=== PATIENT | male | born 1970 | race Caucasian/White ===

== ENCOUNTER 2024-06-18 12:14 | Observation (INO) | payer OTHER ==
[2024-06-18] MEDS ORDERED: NA CHLORIDE 0.9% 1,000 ML ONE ×2 (12:45→15:19)
[2024-06-18] MEDS ORDERED: MORPHINE 4 MG/ML SYR ONE ×2 (12:45→13:44)
[2024-06-18] MEDS ORDERED: ONDANSETRON 4 MG/2 ML VIAL ONE ×2 (12:45→18:24)
[2024-06-18 13:16] LABS: Absolute Basophils 0.1 K/uL (0-0.5); Absolute Eosinophils 0.1 K/uL (0-0.5); Absolute Lymphocytes (CBC) 2.8 K/uL (0.7-4.9); Absolute Monocytes 1.6 K/uL (0.1-1.3); Absolute Neutrophil 11.9 K/uL (1.8-8.0); Basophils % 0.5 % (0-1.3); Eosinophils % 0.5 % (0-4.4); Hematocrit 49.3 % (39.6-49.0); Hemoglobin 15.8 g/dL (13.6-17.9); Lymphocytes % 16.8 % (15.3-44.8); MCH 28.1 pg (27.0-35.0); MCV 87.9 fL (80-100); MPV 8.6 fL (7.6-11.3); Monocytes % 9.5 % (3.3-12.3); Neutrophils % 72.7 % (41.7-73.7); Platelets 328 thou/uL (152-406); RBC Red Blood Cell Count 5.61 M/uL (4.33-5.43); Red Cell Distribution Width 14.3 % (12.1-15.2)
[2024-06-18 13:21] LABS: Specific Gravity 1.022 (1.005-1.030); Sqamous Epithelial None Seen /HPF (None Seen); Urine Bacteria None Seen /HPF (<20); Urine Bilirubin NEGATIVE (Negative); Urine Blood Trace (Negative); Urine Clarity Clear (Clear); Urine Color Light-Yellow (Yellow); Urine Culture Reflex Order NOT NEEDED; Urine Glucose 4+ (Over) (Negative); Urine Ketones NEGATIVE (Negative); Urine Microscopic Reflex YN ORDER UMIC; Urine Nitrite NEGATIVE (Negative); Urine Protein 2+ (Negative); Urine RBC <5 /HPF (None Seen); Urine Urobilinogen Normal (Normal); Urine WBC <5 /HPF (<5); Urine pH 6.5 (5.0-7.0)
--- NOTE | 2024-06-18 13:23 | RAD REPORT ---
EXAMINATION: CT ABDOMEN AND PELVIS WITH CONTRAST CLINICAL INDICATION: Abd pain;Abdominal distention TECHNIQUE: CT abdomen and pelvis was performed, after the administration of IV contrast, as per [facility] protocol. Axial, sagittal and coronal reconstructions were obtained. One or more of the following dose reduction techniques were used: Automated exposure control, adjustment of the mA and k V according to patient size, and iterative reconstruction. Unless otherwise specified, incidental findings do not require dedicated imaging follow-up. COMPARISON: No prior exam. FINDINGS: LOWER CHEST: Mild linear atelectasis left lung base. LIVER: Mild fatty liver is present. No focal lesion or biliary dilatation is seen. Cholecystectomy clips. SPLEEN: Normal size. No focal lesion. PANCREAS: Slight haziness in the fat surrounding the pancreatic uncinate process. ADRENALS: Normal; no mass. KIDNEYS: Punctate bilateral nephrolithiasis. GASTROINTESTINAL TRACT: No evidence of free air, significant intra-abdominal free fluid, bowel obstru ction or abscess. APPENDIX: Appendix not visualized, but no inflammatory changes in region of appendix. LYMPH NODES: No lymphadenopathy. MUSCULOSKELETAL: No acute or suspicious osseous abnormality. ADDITIONAL FINDINGS: Small fat-containing inguinal hernias. IMPRESSION: Subtle haziness in the fat adjacent to the pancreas could indicate pancreatitis. Suggest correlation with amylase/lipase levels. Fatty liver.
[2024-06-18 13:35] LABS: Albumin 3.7 g/dL (3.4-5.0); Albumin/Globulin Ratio 0.8 (1.1-1.8); Anion Gap 9.2 mEq/L (5.0-15.0); Bilirubin Total 0.7 mg/dL (0.2-1.0); Globulin 4.9 g/dL (2.3-3.5); Potassium 3.2 mEq/L (3.5-5.1); Protein, Total 8.6 g/dL (6.4-8.2)
[2024-06-18] MEDS ORDERED: CEFTRIAXONE 1000 MG/VIAL ONE (13:43)
--- NOTE | 2024-06-18 14:04 | EDPHYS ---
Physician Documentation [facility] Name: Bull Myrick Age: 54 yrs Sex: Male : 1970 Arrival Date: 06/18/2024 Time: 12:14 Bed 18 Private MD: ED Physician Reinaldo Lam HPI: 06/18 12:35 This 54 yrs old Male presents to ER via Unassigned with complaints of Low ec2 Back Pain, Abdominal Pain. 12:35 Patient arrives today for evaluation of abdominal pain and low back pain. Patient ec2 reports that he has been experiencing abdominal pain and low back pain this been progressive, described as cramping. Reports he is having some nausea. States he has not had a bowel movement in several days which is atypical for him. Previous history of cholecystectomy and appendectomy. No urinary complaints.. Historical: - Allergies: 12:36 No Known Allergies; kb3 - PMHx: 12:36 Diabetes mellitus; Hypertensive disorder; Gout; PTSD; kb3 - PSHx: 12:36 Cholecystectomy; Appendectomy; Knee SX; kb3 - Immunization history:: Adult Immunizations up to date, Client reports receiving the 2nd dose of the Covid vaccine, Last tetanus immunization: unknown. - Infectious Disease History:: Denies. - Social history:: Smoking status: Patient denies any tobacco usage or history of. ROS: 12:35 Constitutional: as per hpi ec2 Exam: 12:35 Constitutional: GEN: NAD Head: atraumatic Eyes: EOMI Ears: External ears are ec2 normal. CV: tachycardiaLUNGS: no respiratory distress ABD: Some abdominal distention noted, general TTP, worse on the right abdomen. SKIN: no evidence of rashes MSK: no evidence of trauma Vital Signs: 12:33 BP 165 / 102; Pulse 112; Resp 18; Temp 98.5; Pulse Ox 97% ; Weight 104.33 kg; Height 5 kb3 ft. 11 in. ; Pain 8/10; 14:29 BP 155 / 94; Pulse 90; Resp 15; Temp 98.4; Pulse Ox 98% ; Pain 8/10; ty 12:33 Body Mass Index 32.08 (104.33 kg, 180.34 cm) kb3 12:33 Pain Scale: Adult kb3 14:29 Pain Scale: Adult ty MDM: 12:32 Medical Screening Exam initiated ec2 12:35 Data reviewed: vital signs, nurses notes. ED course: Patient arrives today for ec2 abdominal pain and back pain. Examination remarkable for slightly tachycardic individual has abdominal TTP and distention. Will obtain lab work, CT imaging and treat patient's pain.. 13:30 ED course: CBC shows leukocytosis of 16.4. Urine is noninfectious appearing. CT abdomen ec2 pelvis shows possible pancreatitis.. 14:02 ED course: The patient multiple doses of morphine with some improvement in symptoms ec2 however reports that he is still having issues with pain. Will admit for pain control. Discussed with hospitalist, pending admission. GI can be consulted on a nonemergent basis.. 14:24 ED course: EKG independently reviewed and interpreted by me, shows normal sinus rhythm, ec2 rate of 90, no acute ST segment elevations, intervals are nonactionable.. 06/18 12:33 Order name: CBC with Diff; Complete Time: 13:28 ec2 06/18 12:33 Order name: CMP; Complete Time: 13:58 ec2 06/18 12:33 Order name: Lipase; Complete Time: 13:58 ec2 06/18 12:33 Order name: Urinalysis w/ reflexes; Complete Time: 13:28 ec2 06/18 13:30 Order name: Blood Culture Adult (2) ec2 06/18 13:30 Order name: Lactate w/ 2H reflex if indic. ec2 06/18 14:24 Order name: Glucose, Ancillary Testing EDMS 06/18 14:45 Order name: Basic Metabolic Panel EDMS 06/18 14:45 Order name: Basic Metabolic Panel EDMS 06/18 14:45 Order name: Basic Metabolic Panel EDMS 06/18 14:45 Order name: Basic Metabolic Panel EDMS 06/18 14:45 Order name: CBC with Automated Diff EDMS 06/18 14:45 Order name: CBC with Automated Diff EDMS 06/18 14:45 Order name: CBC with Automated Diff EDMS 06/18 14:45 Order name: CBC with Automated Diff EDMS 06/18 14:45 Order name: Lipid Profile EDMS 06/18 14:45 Order name: Lipid Profile EDMS 06/18 14:45 Order name: Magnesium EDMS 06/18 14:45 Order name: Magnesium EDMS 06/18 14:45 Order name: Magnesium EDMS 06/18 14:45 Order name: Magnesium EDMS 06/18 14:45 Order name: Phosphorus EDMS 06/18 14:45 Order name: Phosphorus EDMS 06/18 14:45 Order name: Phosphorus EDMS 06/18 14:45 Order name: Phosphorus EDMS 06/18 14:58 Order name: CREATININE WHOLE BLOOD EDMS 06/18 18:28 Order name: Glucose, Ancillary Testing EDMS 06/18 21:55 Order name: Glucose, Ancillary Testing EDMS 06/19 06:45 Order name: Lipase EDMS 06/19 08:26 Order name: Glucose, Ancillary Testing EDMS 06/18 12:33 Order name: CT Abd/Pelvis - IV Contrast Only; Complete Time: 13:28 ec2 06/18 13:30 Order name: EKG; Complete Time: 13:30 ec2 06/18 12:33 Order name: IV Saline Lock; Complete Time: 13:07 ec2 06/18 12:33 Order name: Labs collected and sent; Complete Time: 13:07 ec2 06/18 12:33 Order name: NPO; Complete Time: 13:07 ec2 06/18 13:30 Order name: Accucheck; Complete Time: 14:16 ec2 06/18 13:30 Order name: Cardiac monitoring; Complete Time: 13:34 ec2 06/18 13:30 Order name: EKG - Nurse/Tech; Complete Time: 14:16 ec2 06/18 13:30 Order name: IV Saline Lock - Large Bore; Complete Time: 13:34 ec2 06/18 13:30 Order name: O2 Per Protocol; Complete Time: 13:34 ec2 06/18 13:30 Order name: O2 Sat Monitoring; Complete Time: 13:34 ec2 06/18 13:30 Order name: Vital Signs; Complete Time: 13:34 ec2 Administered Medications: 13:07 Drug: Ondansetron IVP 4 mg IVP once; over 2 minutes Route: IVP; Site: left antecubital; kb3 13:56 Follow up: Response: Nausea is decreased kb3 13:07 Drug: morphine IVP or IV 4 mg IVP once over 4 mins Route: IVP; Infused Over: 4 mins; kb3 Site: left antecubital; 13:58 Follow up: Response: Pain is decreased kb3 13:07 Drug: NS 0.9% IV 1000 ml IV at 1 bolus Per protocol; to be given as a bolus over 60 kb3 minutes Route: IV; Rate: 1 bolus; Site: left antecubital; 13:55 Drug: morphine IVP or IV 4 mg IVP once over 4 mins Route: IVP; Infused Over: 4 mins; kb3 Site: left antecubital; 14:19 Follow up: Response: No adverse reaction; Pain is decreased kb3 14:18 Drug: Rocephin IV 1 grams IV at calculated rate once; Given slow IV push per pharmacy kb3 instructions Route: IV; Rate: calculated rate; Site: left antecubital; 14:20 Follow up: Response: No adverse reaction; IV Status: Completed infusion; IV Intake: [id number] Point of Care Testing: Blood Glucose: 14:20 Blood Glucose: 94 mg/dL; kb3 Ranges: Critical Glucose Levels:Adult <50 mg/dl or >400 mg/dl <40 mg/dl or >180 mg/dl Disposition Summary: 06/18/24 14:03 Hospitalization Ordered Notes: Hospitalization Status: Inpatient Admission ec2 Provider: Edwin Payne ec2 Condition: Stable ec2 Problem: new ec2 Symptoms: have improved ec2 Bed/Room Type: Standard ec2 Location: Telemetry/MedSurg (Inpatient)(06/19/24 08:17) kb3 Room Assignment: 413(06/19/24 08:17) kb3 Diagnosis - Acute pancreatitis without necrosis or infection, unspecified ec2 Forms: - Medication Reconciliation Form ec2 - SBAR form ec2 - Leadership Thank You Letter ec2 Signatures: Dispatcher [employer] EDMS Kat Mueller James RN RN jb4 Bailey Kemp RN RN kb3 Sonal Alvarado rv1 Reinaldo Lam MD MD ec2 Corrections: (The following items were deleted from the chart) 12:37 12:35 Constitutional: GEN: NAD Head: atraumatic Eyes: EOMI Ears: External ears are ec2 normal. CV: regular rate LUNGS: no respiratory distress ABD: Some abdominal distention noted, general TTP, worse on the right abdomen. SKIN: no evidence of rashes MSK: no evidence of trauma ec2 18:32 14:03 ec2 sp 19:09 18:32 213 sp rv1 19:12 14:03 Telemetry/MedSurg (Inpatient) ec2 jb4 19:12 19:09 rv1 jb4 06/19 08:17 06/18 19:12 [facility] jb4 kb3 06/19 08:17 06/18 19:12 HOLD- jb4 kb3
--- NOTE | 2024-06-18 14:04 | ER ---
Nurse's Notes [facility] Name: Bull Myrick Age: 54 yrs Sex: Male : 1970 Arrival Date: 06/18/2024 Time: 12:14 Bed 18 Private MD: Diagnosis: Acute pancreatitis without necrosis or infection, unspecified Presentation: 06/18 12:33 Chief complaint: Patient states: Bilateral flank pain, lower abdominal pain, fever, kb3 N/V, frequent urination x1 day. Coronavirus screen: Vaccine status: Patient reports receiving the 2nd dose of the covid vaccine. Client denies travel out of the [place] in the last 14 days. Ebola Screen: Patient negative for fever greater than or equal to 101.5 degrees Fahrenheit, and additional compatible Ebola Virus Disease symptoms Patient denies exposure to infectious person. Patient denies travel to an Ebola-affected area in the 21 days before illness onset. Initial Sepsis Screen: Does the patient meet any 2 criteria? No. Patient's initial sepsis screen is negative. Does the patient have a suspected source of infection? No. Patient's initial sepsis screen is negative. Risk Assessment: Do you want to hurt yourself or someone else? Patient reports no desire to harm self or others. Onset of symptoms was June 17, 2024. 12:33 Method Of Arrival: Ambulatory kb3 12:33 Acuity: DONTA 3 kb3 Triage Assessment: 12:36 General: Appears in no apparent distress. uncomfortable, Behavior is calm, cooperative. kb3 Pain: Complains of pain in left low back, right low back, right lower quadrant and left lower quadrant Pain does not radiate. Pain currently is 8 out of 10 on a pain scale. Quality of pain is described as pressure, Pain began 1 day ago. Is continuous. GI: Abdomen is round non-distended, Abd is soft X 4 quads Abdomen is tender to palpation in right lower quadrant and left lower quadrant Reports lower abdominal pain, constipation, nausea, vomiting. 12:36 : Reports urgency, urinary frequency, since 1 day. kb3 Historical: - Allergies: 12:36 No Known Allergies; kb3 - PMHx: 12:36 Diabetes mellitus; Hypertensive disorder; Gout; PTSD; kb3 - PSHx: 12:36 Cholecystectomy; Appendectomy; Knee SX; kb3 - Immunization history:: Adult Immunizations up to date, Client reports receiving the 2nd dose of the Covid vaccine, Last tetanus immunization: unknown. - Infectious Disease History:: Denies. - Social history:: Smoking status: Patient denies any tobacco usage or history of. Screenin:39 [facility] ED Fall Risk Assessment (Adult) History of falling in the last 3 months, kb3 including since admission No falls in past 3 months (0 pts) Confusion or Disorientation No (0 pts) Intoxicated or Sedated No (0 pts) Impaired Gait No (0 pts) Mobility Assist Device Used No (0 pt) Altered Elimination No (0 pt) Score/Fall Risk Level 0 - 2 = Low Risk Oriented to surroundings. Abuse screen: Denies threats or abuse. Denies injuries from another. Nutritional screening: No deficits noted. Tuberculosis screening: No symptoms or risk factors identified. Assessment: 12:39 General: See triage assessment. kb3 13:35 General: Pt states pain has improved but he is still uncomfortable. MD notified. kb3 13:59 Reassessment: Patient appears in no apparent distress at this time. No changes from kb3 previously documented assessment. Patient and/or family updated on plan of care and expected duration. Pain level reassessed. Patient is alert, oriented x 3, equal unlabored respirations, skin warm/dry/pink. Vital Signs: 12:33 BP 165 / 102; Pulse 112; Resp 18; Temp 98.5; Pulse Ox 97% ; Weight 104.33 kg; Height 5 kb3 ft. 11 in. ; Pain 8/10; 14:29 BP 155 / 94; Pulse 90; Resp 15; Temp 98.4; Pulse Ox 98% ; Pain 8/10; ty 12:33 Body Mass Index 32.08 (104.33 kg, 180.34 cm) kb3 12:33 Pain Scale: Adult kb3 14:29 Pain Scale: Adult ty ED Course: 12:17 Patient arrived in ED. mg5 12:17 Reinaldo Lam MD is Attending Physician. ec2 12:36 Triage completed. kb3 12:36 Arm band placed on right wrist. Patient placed in an exam room, on a stretcher. kb3 12:39 Patient has correct armband on for positive identification. Bed in low position. Call kb3 light in reach. Side rails up X2. Adult w/ patient. Provided Education on: Plan of care. Pulse ox on. NIBP on. Diet: Patient is NPO. 12:39 No provider procedures requiring assistance completed. kb3 13:[address] via wheelchair. kb3 13:07 CBC with Diff Sent. ty 13:07 CMP Sent. ty 13:07 Lipase Sent. ty 13:07 Urinalysis w/ reflexes Sent. ty 13:08 Initial lab(s) drawn, by me, sent to lab. Urine collected: clean catch specimen, clear, ty Amount Voided: 275mL. Inserted saline lock: 22 gauge in left antecubital area, using aseptic technique. Blood collected. Flushed with 10 mL NS. 13:13 CT Abd/Pelvis - IV Contrast Only In Process Unspecified. EDMS 13:58 First set of blood cultures drawn Using 23G butterfly needle. ty 14:03 Edwin Payne is Hospitalizing Provider. ec2 14:10 Inserted saline lock: 22 gauge in right antecubital area, using aseptic technique. ty Blood collected. Flushed with 10 mL NS. 14:10 Initial lab(s) drawn, Second set of blood cultures drawn by me. ty 14:12 EKG done, by ED staff, reviewed by Reinaldo Lam MD. ty 14:16 Blood Culture Adult (2) Sent. kb3 14:16 Lactate w/ 2H reflex if indic. Sent. kb3 14:20 EKG completed in triage. Results shown to . kb3 14:26 Inserted. ty 15:14 Eleno Connor, RN is Primary Nurse. jb4 Administered Medications: 13:07 Drug: Ondansetron IVP 4 mg IVP once; over 2 minutes Route: IVP; Site: left antecubital; kb3 13:56 Follow up: Response: Nausea is decreased kb3 13:07 Drug: morphine IVP or IV 4 mg IVP once over 4 mins Route: IVP; Infused Over: 4 mins; kb3 Site: left antecubital; 13:58 Follow up: Response: Pain is decreased kb3 13:07 Drug: NS 0.9% IV 1000 ml IV at 1 bolus Per protocol; to be given as a bolus over 60 kb3 minutes Route: IV; Rate: 1 bolus; Site: left antecubital; 13:55 Drug: morphine IVP or IV 4 mg IVP once over 4 mins Route: IVP; Infused Over: 4 mins; kb3 Site: left antecubital; 14:19 Follow up: Response: No adverse reaction; Pain is decreased kb3 14:18 Drug: Rocephin IV 1 grams IV at calculated rate once; Given slow IV push per pharmacy kb3 instructions Route: IV; Rate: calculated rate; Site: left antecubital; 14:20 Follow up: Response: No adverse reaction; IV Status: Completed infusion; IV Intake: [id number] Medication: 12:39 VIS not applicable for this client. kb3 Point of Care Testing: Blood Glucose: 14:20 Blood Glucose: 94 mg/dL; kb3 Ranges: Intake: 14:20 IV: 10ml; Total: 10ml. kb3 Outcome: 14:03 Decision to Hospitalize by Provider. ec2 06/19 10:08 Patient left the ED. ap3 Signatures: Dispatcher [employer] Eleno Stapleton RN RN jb4 Martha Cunha RN RN ap3 Bailey Kemp RN RN kb3 Meagan Domingo mg5 Reinaldo Lam MD MD ec2 Juan Daniel Epps ty Corrections: (The following items were deleted from the chart) 06/18 14:29 14:16 Inserted saline lock: 22 gauge in right antecubital area, using aseptic ty technique. Blood collected. Flushed with 10 mL NS kb3
--- NOTE | 2024-06-18 14:19 | P.HP ---
Certification for Inpatient Patient admitted to: Observation With expected LOS: <2 Midnights Patient will require the following post-hospital care: None Practitioner: I am a practitioner with admitting privileges, knowledge of patient current condition, hospital course, and medical plan of care. Services: Services provided to patient in accordance with Admission requirements found in Title 42 Section 412.3 of the Code of Federal Regulations Patient History Date of Service: 06/18/24 Reason for admission: Acute pancreatitis History of Present Illness: Bull Myrick is a 54 year old male with Pmhx HTN, DM, Gout, PTSD who presents to the ED with abdominal pain and lower back pain progressively worsening. He reports more pain in his back than in his abdomen, vomiting, and unable to sleep. On examination, severe pain to LUQ on palpation. Laboratory evaluation significant for WBC 16.4, potassium 3.2, lipase 108. Initial vitals BP 165 / 102; Pulse 112; Resp 18; Temp 98.5; Pulse Ox 97% CT abd/pelvis reports "Subtle haziness in the fat adjacent to the pancreas could indicate pancreatitis. Suggest correlation with amylase/lipase levels. Fatty naresh er. Small fat containing inguinal hernias." Bull will be admitted to hospitalist service for Acute pancreatitis. Allergies No Known Allergies Allergy (Unverified 06/18/24 15:17) - Past Medical/Surgical History -: Diabetes mellitus -: Gout -: PTSD -: Hypertension -: Appendectomy -: Cholecystectomy -: Knee surgeries - Social History Smoking Status: Never smoker Alcohol use: No CD- Drugs: No Review of Systems Gastrointestinal: Vomiting, Abdominal Pain Musculoskeletal: Back Pain Physical Examination - Physical Exam General: Alert, In no apparent distress, Oriented x3 HEENT: Atraumatic, Normocephalic, PERRLA Neck: Supple, 2+ carotid pulse no bruit Respiratory: Clear to auscultation bilaterally, Normal air movement, Diminished Cardiovascular: No edema, Normal pulses, Regular rate/rhythm Capillary refill: <2 Seconds Gastrointestinal: Normal bowel sounds, Soft and benign, Distended (obese) Musculoskeletal: No clubbing Integumentary: No rashes Neurological: Normal speech, Normal tone - Studies Laboratory Data (last 24 hrs) 06/18/24 06/18/24 13:00 13:00 WBC 16.40 H Hgb 15.8 Hct 49.3 H Plt Count 328 Sodium 138 Potassium 3.2 L BUN 13 Creatinine 1.20 Glucose 110 H Total Bilirubin 0.7 AST 18 ALT 33 Alkaline Phosphatase 120 H Lipase 108 H Assessment and Plan - Plan Assessment and Plan Acute pancreatitis Leukocytosis -CT abd/pelvis reports "Small fat containing inguinal hernias, Subtle haziness in the fat adjacent to the pancreas could indicate pancreatitis." -Lipase 108, trend daily -pain control -aggressive IVF -Rocephin given in the ED -Triglyceride 87, cholesterol 199, LDL 21, HDL 61 Hypokalemia -k3.2 -Replaced -monitor in AM labs Diabetes mellitus -Accucheck with SSI -Serum glucose 110 Hypertensive disorder Gout PTSD -Continue home medications Inguinal hernia -Incidental finding on CT scan -follow up outpatient DVT ppx Discharge Plan: Home Plan to discharge in: 24 Hours - Advance Directives Does patient have a Living Will: No Does patient have a Durable POA for Healthcare: No
[2024-06-18] MEDS: NA CHLORIDE 0.9% 1,000 ML IV SCH (15:00)
[2024-06-18] MEDS: ENOXAPARIN 40 MG/0.4 ML SQ SCH (15:00)
[2024-06-18] MEDS ORDERED: ENOXAPARIN 40 MG/0.4 ML SQ ONE (15:19)
[2024-06-18] MEDS: POTASSIUM CL 40 MEQ in NA CHLORIDE 0.9% 500 ML IV SCH (17:00)
[2024-06-18 18:08] VITALS: BMI 32.1
[2024-06-18] MEDS: ONDANSETRON 4 MG/2 ML VIAL IV ONE (18:15)
[2024-06-18] MEDS: INSULIN REGULAR (HUMAN) 100 UNIT/ML SQ SCH (18:20)
[2024-06-18] MEDS ORDERED: HYDROMORPHONE HCL 1 MG/ML INJ ONE (18:24)
[2024-06-18] MEDS ORDERED: D5 0.9 NS 1,000 ML IV ONE (18:24)
[2024-06-18] MEDS: D5 0.9 NS 1,000 ML IV SCH (18:32)
[2024-06-18] MEDS: HYDROMORPHONE HCL 1 MG/ML INJ IV PRN (18:32)
[2024-06-18 18:46] VITALS: O2SAT 95
[2024-06-18] MEDS ORDERED: HYDRALAZINE HCL 20 MG/ML VIAL ONE (19:02)
[2024-06-18] MEDS: HYDRALAZINE HCL 20 MG/ML VIAL IV PRN (19:09)
[2024-06-18] MEDS: hydrOXYzine HCL 25 MG TAB PO ONE (19:10)
[2024-06-18] MEDS ORDERED: hydrOXYzine HCL 25 MG TAB ONE (19:17)
[2024-06-19] MEDS ORDERED: D5 0.9 NS 1,000 ML IV ONE (01:34)
[2024-06-19 06:26] LABS: Absolute Basophils 0.1 K/uL (0-0.5); Absolute Eosinophils 0.3 K/uL (0-0.5); Absolute Monocytes 1.3 K/uL (0.1-1.3); Absolute Neutrophil 6.4 K/uL (1.8-8.0); Basophils % 0.6 % (0-1.3); Eosinophils % 3.4 % (0-4.4); Hematocrit 41.5 % (39.6-49.0); Hemoglobin 13.5 g/dL (13.6-17.9); Lymphocytes % 19.6 % (15.3-44.8); MCH 28.7 pg (27.0-35.0); MCHC 32.6 g/dL (32.0-36.0); MCV 88.1 fL (80-100); MPV 8.1 fL (7.6-11.3); Monocytes % 12.6 % (3.3-12.3); Neutrophils % 63.8 % (41.7-73.7); Nucleated Red Blood Cells % 0.1 % (0-0); Platelets 272 thou/uL (152-406); RBC Red Blood Cell Count 4.72 M/uL (4.33-5.43); Red Cell Distribution Width 14.3 % (12.1-15.2)
[2024-06-19 06:41] LABS: Phosphorus 2.3 mg/dL (2.5-4.9)
[2024-06-19] MEDS ORDERED: CEFTRIAXONE 1000 MG/VIAL ONE (07:45)
[2024-06-19] MEDS ORDERED: ENOXAPARIN 40 MG/0.4 ML SQ ONE (07:46)
[2024-06-19] MEDS ORDERED: NA CHLORIDE 0.9% 100 ML ONE (07:46)
[2024-06-19] MEDS: CEFTRIAXONE 1,000 MG in NA CHLORIDE 0.9% 50 ML IVPB SCH (08:40)
[2024-06-19] MEDS ORDERED: SUMATRIPTAN SUCCI 50 MG TAB PO PRN (10:31)
[2024-06-19] MEDS: CYCLOBENZAPRINE 10 MG TAB PO SCH (12:32)
[2024-06-19] MEDS: AMLODIPINE 10 MG TAB PO SCH (12:32)
[2024-06-19] MEDS: GABAPENTIN 300 MG CAP PO SCH (15:45)
[2024-06-19] MEDS ORDERED: INSULIN GLARGINE 100 UNIT/ML SQ SCH (17:15)
--- NOTE | 2024-06-19 17:54 | P.DS ---
Admission Date: 06/18/24 Discharge Date: 06/19/24 Disposition: ROUTINE DISCHARGE Discharge Condition: GOOD Reason for Admission: Acute pancreatitis Brief History of Present Illness: Diagnosis Acute pancreatitis Leukocytosis Hypokalemia Diabetes mellitus Hypertensive disorder Gout PTSD Inguinal hernia HPI 06/18/2024 Bull Myrick is a 54 year old male with Pmhx HTN, DM, Gout, PTSD who presents to the ED with abdominal pain and lower back pain progressively worsening. He reports more pain in his back than in his abdomen, vomiting, and unable to sleep. On examination, severe pain to LUQ on palpation. Laboratory evaluation significant for WBC 16.4, potassium 3.2, lipase 108. Initial vitals BP 165 / 102; Pulse 112; Resp 18; Temp 98.5; Pulse Ox 97% CT abd/pelvis reports "Subtle haziness in the fat adjacent to the pancreas could indicate pancreatitis. Suggest correlation with amylase/lipase levels. Fatty liver. Small fat containing inguinal hernias." Bull will be admitted to hospitalist service for Acute pancreatitis. Hospital Course: Bull Myrick is a pleasant 54-year-old male with a past medical history significant for HTN, DM, Gout, PTSD who was admitted to the [facility] on 06/18/2024 for acute pancreatitis. Bull Myrick presented to the ED with abdominal pain, nausea, vomiting, and unable to sleep x [address] abdomen pelvis reports "subtle haziness in the fat adjacent to the pancreas could indicate pancreatitis" with WBC 16.4 and normal tryglycerides. Aggressive IVF started. Lipase reduced and WBC normalized. He reports feeling better the next day. He tolerated clear liquid diet without inducing nausea or vomiting. Pain has improved, he is ambulating independently. He denies chest pain, SOB, and back pain. On 06/19/2024, Bull was seen on morning rounds and deemed medically stable for discharge. Bull was discharged with instructions to schedule follow-up appointments with PCP. Bull was provided prescriptions for Protonix. Physical Exam General: Alert and Oriented x3, NAD HEENT: Atraumatic, Normocephalic, PERRLA Neck: Supple, 2+ carotid pulse no bruit Respiratory: Clear to auscultation bilaterally, nonlabored breathing, clear BBS Cardiovascular: No edema, Normal pulses, RRR Capillary refill: <2 Seconds Gastrointestinal: Normal bowel sounds, Soft and benign on palpation, Distended (obese) Musculoskeletal: No clubbing Integumentary: No rashes Neurological: Normal speech, Normal tone Vital Signs/Physical Exam: Temp Pulse Resp BP Pulse Ox 97.9 F 70 18 148/86 H 96 06/19/24 12:00 06/19/24 12:00 06/19/24 12:00 06/19/24 12:00 06/19/24 12:00 Laboratory Data at Discharge: WBC 10.10 thou/uL (4.3-10.9) 06/19/24 06:00 Hgb 13.5 g/dL (13.6-17.9) L D 06/19/24 06:00 Hct 41.5 % (39.6-49.0) 06/19/24 06:00 Plt Count 272 thou/uL (152-406) 06/19/24 06:00 Sodium 141 mEq/L (136-145) 06/19/24 06:00 Potassium 4.0 mEq/L (3.5-5.1) D 06/19/24 06:00 BUN 12 mg/dL (7-18) 06/19/24 06:00 Creatinine 1.21 mg/dL (0.70-1.30) 06/19/24 06:00 Glucose 146 mg/dL (74-106) H 06/19/24 06:00 Phosphorus 2.3 mg/dL (2.5-4.9) L 06/19/24 06:00 Magnesium 2.0 mg/dL (1.6-2.4) 06/19/24 06:00 Total Bilirubin 0.7 mg/dL (0.2-1.0) 06/18/24 13:00 AST 18 U/L (15-37) 06/18/24 13:00 ALT 33 U/L (16-61) 06/18/24 13:00 Alkaline Phosphatase 120 U/L (45-117) H 06/18/24 13:00 Triglycerides 87 mg/dL (<150) 06/18/24 13:00 Cholesterol 199 mg/dL (<200) 06/18/24 13:00 HDL Cholesterol 61 mg/dL (40-60) H 06/18/24 13:00 Cholesterol/HDL Ratio 3.26 06/18/24 13:00 Lipase 85 U/L (13-75) H 06/19/24 06:00 Home Medications: Amlodipine [Norvasc*] 10 mg PO DAILY 06/19/24 Aspirin Chewable [Aspirin Chewable*] 81 mg PO DAILY 06/19/24 Atorvastatin Calcium [Lipitor] 80 mg PO DAILY 06/19/24 Celecoxib 100 mg pe PO BID 06/19/24 Cyclobenzaprine HCl 10 mg PO BID 06/19/24 Empagliflozin [Jardiance] 10 mg PO DAILY 06/19/24 Famotidine 40 mg PO BID 06/19/24 Gabapentin 600 mg PO TID 06/19/24 Insulin Aspart [Insulin Aspart Flexpen] See Rx Instructions .ROUTE .COMPLEX 06/19/24 Insulin Glargine,Hum.rec.anlog [Basaglar Kwikpen U-100] 50 units SQ DAILY 06/19/24 Lisinopril [Zestril] 40 mg PO DAILY 06/19/24 Metformin HCl 500 mg pe PO BID 06/19/24 Pantoprazole [Protonix Tab] 40 mg PO DAILY 30 Days #30 tab 06/19/24 Quetiapine [Seroquel*] 50 mg PO BEDTIME 06/19/24 SUMAtriptan succinate [Sumatriptan Succinate] 100 mg PO PRN PRN 06/19/24 Sertraline [Zoloft*] 100 mg PO DAILY 06/19/24 Sildenafil Citrate [Viagra] 100 mg PO PRN PRN 06/19/24 Tramadol HCl 100 mg PO Q6H 4 Days #15 tab 06/19/24 New Medications: Pantoprazole [Protonix Tab] 40 mg PO DAILY 30 Days #30 tab Tramadol HCl 100 mg PO Q6H 4 Days #15 tab Physician Discharge Instructions: 1. Please call and schedule a follow-up appointment with your PCP in 3-5 days - Please follow-up with your PCP for medication refills/adjustments 2. Continue clear liquid diet, stay hydrated 3. No activity restrictions 4. Return to the ED if symptoms worsen New medications Protonix 40 mg daily Tramadol 100 mg every 6 hours x 15 doses [facility]: [facility] [Primary Care Provider] -
[2024-06-19 19:01] VITALS: BP 151/82; TEMP 98
[2024-06-19] MEDS ORDERED: ATORVASTATIN 80 MG TAB PO SCH (21:00)
[2024-06-19] MEDS ORDERED: FAMOTIDINE 20 MG TAB PO SCH (21:00)
[2024-06-20] MEDS ORDERED: lisinopriL 20 MG TAB PO SCH (09:00)
[2024-06-20] MEDS ORDERED: SERTRALINE HCL 100 MG TAB PO SCH (09:00)
== END 2024-06-19 18:45 | disposition home or self-care (01) ==
LOC: ER 12:14 → ERHOLD 14:38 → 4TH 06-19 08:50
PROVIDERS: ADMIT Internal Medicine; ATTEND Internal Medicine
DX: K85.90 Acute pancreatitis without necrosis or infection, unspecified (principal); I10 Essential (primary) hypertension; E11.9 Type 2 diabetes mellitus without complications; M10.9 Gout, unspecified; F43.10 Post-traumatic stress disorder, unspecified; M54.50 Low back pain, unspecified; R10.9 Unspecified abdominal pain; E87.6 Hypokalemia; D72.829 Elevated white blood cell count, unspecified; K40.90 Unilateral inguinal hernia, without obstruction or gangrene, not specified as recurrent
CPT/HCPCS: 87040 ×2; 85025 ×2; 81001; 80048; 36415; 83735; 84100; 80061; 82565; 82947 ×6; 83605; 83690 ×2; 80053; 74177; Q9967; J0360; J3480; J1650 ×2; J1171; J2405 ×2; J7042 ×4; J7040; J7030 ×2; J0696 ×2; G0378